=== PATIENT | male | born 1955 | race Hispanic/Latino ===

== ENCOUNTER 2017-06-10 21:05 | Inpatient (IN) | payer MEDICAID, OTHER ==
[~2017-06-10] VITALS: Ht 170.2 cm; Wt 68.0 kg
[2017-06-10 21:45] LABS: ABG BASE EXCESS 2.4 mmol/L (-2.0-3.0); ABG HCO3 23.9 mmol/L (21.0-28.0); ABG OXYGEN SATURATION 98.6 % (95.0-99.0); ABG PCO2 29 mmHg (35-48)
[2017-06-10 21:49] LABS: BASOPHILS % (AUTO) 0.5 % (0.0-5.0); HEMATOCRIT 44.8 % (42-54); LYMPHOCYTES % (AUTO) 13.4 % (21.0-51.0); MEAN CORPUSCULAR HEMOGLOBIN 29.5 pg (27.0-33.0); MEAN CORPUSCULAR HGB CONC 32.7 g/dL (32.0-36.0); MEAN CORPUSCULAR VOLUME 90.2 fL (79-99); NEUTROPHILS % (AUTO) 79.1 % (40.0-77.0); PLATELET COUNT (AUTO) 267 K/uL (130-400); RED BLOOD CELL COUNT(AUTO) 4.97 MIL/uL (4.50-6.20); RED CELL DISTRIBUTION WIDTH 14.7 % (11.0-15.5); WHITE BLOOD COUNT (AUTO) 17.3 K/uL (4.8-10.8)
[2017-06-10] MEDS ORDERED: SODIUM CHLORIDE 0.9% 500ML 500 ML IV ONE (21:52)
[2017-06-10 22:00] LABS: INR 1.16 (0.85-1.15); PARTIAL THROMBOPLASTIN TIME 29.2 SEC (26.3-35.5); PROTHROMBIN TIME 12.1 SEC (9.6-11.6)
[2017-06-10 22:10] LABS: ALANINE AMINOTRANSFERASE 25 U/L (12-78); ALBUMIN 2.6 g/dL (3.5-5.0); AMYLASE 26 U/L (25-115); ASPARTATE AMINOTRANSFERASE 314 U/L (10-37); BILIRUBIN,TOTAL 1.6 mg/dL (0.2-1.0); CARBON DIOXIDE 31 mmol/L (21-32); CREATINE KINASE MB < 0.5 ng/mL (0.5-3.6); CREATINE KINASE, TOTAL 33 U/L (21-232); GLOMERULAR FILTR. RATE CALC 80 mL/min (>60); GLUCOSE,RANDOM 89 mg/dL (70-105); LIPASE 65 U/L (114-286); MYOGLOBIN 27 ng/mL (10-92); POTASSIUM 5.2 mmol/L (3.5-5.1); SODIUM SERUM 129 mmol/L (136-145); TOTAL PROTEIN, SERUM 8.6 g/dL (6.0-8.3); UREA NITROGEN, BLOOD 11 mg/dL (7-18)
[2017-06-10 22:19] LABS: CHLORIDE 90 mmol/L (101-111)
[2017-06-10 23:10] LABS: BILIRUBIN,URINE Small (NEGATIVE); COLOR,URINE Dark Yellow (YELLOW); GLUCOSE, URINE (UA) Negative (NEGATIVE); KETONES,URINE 15 mg/dL (NEGATIVE); LEUKOCYTE ESTERASE ,URINE Negative (NEGATIVE); NITRATE,URINE Negative (NEGATIVE); OCCULT BLOOD,URINE Negative (NEGATIVE); PH,URINE 5.5 (5.0-8.0); PROTEIN,URINE POS 2+ (NEGATIVE)
[2017-06-10 23:14] LABS: APPEARANCE,URINE SLIGHTLY CLOUDY (CLEAR)
[2017-06-10] MEDS ORDERED: LEVOFLOXACIN 500 MG TABLET ONE (23:15)
[2017-06-10] MEDS ORDERED: CEFTRIAXONE SODIUM 1 GM ONE (23:16)
[2017-06-10 23:22] LABS: BACTERIA,URINE None Seen /HPF (None Seen); RBC,URINE None Seen /HPF (0-1); SQUAMOUS EPITHELIAL CELL,UR Few /LPF (0-2); WBC,URINE None Seen /HPF (0-1)
[2017-06-11] MEDS: SODIUM CHLORIDE 0.9% 1000ML 1,000 ML IV SCH ×4 (00:17→22:09)
[2017-06-11] MEDS ORDERED: ONDANSETRON HCL 4 MG/2 ML VIAL IV PRN (00:30)
[2017-06-11] MEDS: LEVOFLOXACIN 500 MG/D5W 100 ML 100 ML IV SCH ×2 (00:30→23:58)
[2017-06-11] MEDS ORDERED: HYDRALAZINE HCL 20 MG/ML VIAL IV PRN (00:30)
[2017-06-11] MEDS ORDERED: ACETAMINOPHEN 325 MG TAB PO PRN (00:30)
[2017-06-11] MEDS ORDERED: ZOLPIDEM TARTRATE 5 MG TAB PO PRN (00:30)
[2017-06-11] MEDS ORDERED: SODIUM CHLORIDE 0.9% 1000ML 1,000 ML IV ONE (01:35)
[2017-06-11 06:30] LABS: HEMATOCRIT 37.7 % (42-54); MEAN CORPUSCULAR HEMOGLOBIN 29.6 pg (27.0-33.0); MEAN CORPUSCULAR HGB CONC 33.4 g/dL (32.0-36.0); MEAN CORPUSCULAR VOLUME 88.8 fL (79-99); PLATELET COUNT (AUTO) 177 K/uL (130-400); RED BLOOD CELL COUNT(AUTO) 4.24 MIL/uL (4.50-6.20); RED CELL DISTRIBUTION WIDTH 14.2 % (11.0-15.5); WHITE BLOOD COUNT (AUTO) 14.4 K/uL (4.8-10.8)
[2017-06-11 06:46] LABS: ALBUMIN 2.1 g/dL (3.5-5.0); BILIRUBIN,TOTAL 1.1 mg/dL (0.2-1.0); CREATININE 0.8 mg/dL (0.5-1.5); POTASSIUM 4.3 mmol/L (3.5-5.1); TOTAL PROTEIN, SERUM 7.1 g/dL (6.0-8.3)
[2017-06-11] MEDS: MEGESTROL 400 MG/10 ML UDCUP PO SCH ×2 (08:00→17:19)
[2017-06-11] MEDS: ENOXAPARIN SODIUM 40 MG/0.4 ML SYRINGE SQ SCH (09:00)
[2017-06-11] MEDS: PANTOPRAZOLE SODIUM 40 MG TABLET.DR PO SCH (09:00)
[2017-06-11] MEDS ORDERED: ENOXAPARIN SODIUM 40 MG/0.4 ML SYRINGE SQ ONE (10:10)
[2017-06-11] MEDS ORDERED: MEGESTROL 400 MG/10 ML UDCUP PO SCH (10:45)
[2017-06-11] MEDS ORDERED: FLU VACC QS2017-18 36MOS UP/PF 60 MCG/0.5 ML ML IM ONE (18:30)
[2017-06-11 20:00] VITALS: BP 92/63
[2017-06-12] VITALS (7 sets, daily range): BP systolic 90–100; BP diastolic 40–64
[2017-06-12] MEDS ORDERED: TEMAZEPAM 15 MG CAPSULE PO PRN (00:30)
[2017-06-12 05:42] LABS: HEMATOCRIT 35.3 % (42-54); MEAN CORPUSCULAR HEMOGLOBIN 31.2 pg (27.0-33.0); MEAN CORPUSCULAR HGB CONC 34.7 g/dL (32.0-36.0); MEAN CORPUSCULAR VOLUME 89.9 fL (79-99); PLATELET COUNT (AUTO) 134 K/uL (130-400); RED BLOOD CELL COUNT(AUTO) 3.93 MIL/uL (4.50-6.20); RED CELL DISTRIBUTION WIDTH 14.5 % (11.0-15.5); WHITE BLOOD COUNT (AUTO) 10.1 K/uL (4.8-10.8)
[2017-06-12 05:52] LABS: BAND NEUTROPHILS % (MANUAL) 11 % (0-2); LYMPHOCYTES % (MANUAL) 7 % (22-44); MAN.DIFF COMMENT-IMPRESSION MANUAL DIFFERENTIAL; MONOCYTES % (MANUAL) 1 % (2-9); PLATELET MORPHOLOGY COMMENT DECREASED; SEGMENTED NEUTROPHILS % 81 % (40-70)
[2017-06-12] MEDS: SODIUM CHLORIDE 0.9% 1000ML 1,000 ML IV SCH ×2 (05:57→16:17)
[2017-06-12 06:00] LABS: CREATININE 0.7 mg/dL (0.5-1.5); POTASSIUM 3.7 mmol/L (3.5-5.1)
[2017-06-12] MEDS: PANTOPRAZOLE SODIUM 40 MG TABLET.DR PO SCH (08:27)
[2017-06-12] MEDS: ENOXAPARIN SODIUM 40 MG/0.4 ML SYRINGE SQ SCH (08:27)
[2017-06-12] MEDS: MEGESTROL 400 MG/10 ML UDCUP PO SCH ×2 (08:27→17:11)
[2017-06-13] MEDS: LEVOFLOXACIN 500 MG/D5W 100 ML 100 ML IV SCH ×2 (01:35→23:37)
[2017-06-13] MEDS: SODIUM CHLORIDE 0.9% 1000ML 1,000 ML IV SCH (01:36)
[2017-06-13 04:25] VITALS: BP 102/60
[2017-06-13 05:50] LABS: CREATININE 0.8 mg/dL (0.5-1.5); POTASSIUM 3.5 mmol/L (3.5-5.1)
[2017-06-13 07:00] VITALS: BP 106/66
[2017-06-13] MEDS: PANTOPRAZOLE SODIUM 40 MG TABLET.DR PO SCH (08:08)
[2017-06-13] MEDS: ENOXAPARIN SODIUM 40 MG/0.4 ML SYRINGE SQ SCH (08:08)
[2017-06-13] MEDS: MEGESTROL 400 MG/10 ML UDCUP PO SCH ×2 (08:08→16:57)
[2017-06-13 11:00] VITALS: BP 99/64
[2017-06-13 16:00] VITALS: BP 94/58
[2017-06-13] MEDS: LACTULOSE 20 GM/30 ML UDCUP PO PRN ×2 (16:57→22:38)
[2017-06-13] MEDS: IPRATROPIUM/ALBUTEROL SULFATE 3 ML SOLUTION IH SCH (19:13)
[2017-06-13 20:14] VITALS: BP 106/73
[2017-06-13 22:54] VITALS: BP 107/74
[2017-06-13] MEDS: MORPHINE SULFATE 2 MG/ML 1ML SYG IVP PRN (23:37)
[2017-06-14] VITALS (9 sets, daily range): BP systolic 91–110; BP diastolic 61–74
[2017-06-14] MEDS: IPRATROPIUM/ALBUTEROL SULFATE 3 ML SOLUTION IH SCH ×4 (00:23→18:24)
[2017-06-14] MEDS: MIDODRINE HCL 5 MG TABLET PO SCH (01:00)
[2017-06-14] MEDS: FUROSEMIDE 10 MG/ML 2ML VIAL IV SCH (01:00)
[2017-06-14] MEDS ORDERED: FUROSEMIDE 10 MG/ML 2ML VIAL ONE (01:32)
[2017-06-14] MEDS ORDERED: MIDODRINE HCL 5 MG TABLET ONE (01:32)
[2017-06-14 06:14] LABS: BASOPHILS % (AUTO) 0.4 % (0.0-5.0); EOSINOPHILS % (AUTO) 0.1 % (0.0-8.0); HEMATOCRIT 39.8 % (42-54); LYMPHOCYTES % (AUTO) 8.9 % (21.0-51.0); MEAN CORPUSCULAR HEMOGLOBIN 29.8 pg (27.0-33.0); MEAN CORPUSCULAR HGB CONC 33.1 g/dL (32.0-36.0); MEAN CORPUSCULAR VOLUME 90.1 fL (79-99); MONOCYTES % (AUTO) 10.3 % (3.0-13.0); NEUTROPHILS % (AUTO) 80.3 % (40.0-77.0); PLATELET COUNT (AUTO) 137 K/uL (130-400); RED BLOOD CELL COUNT(AUTO) 4.42 MIL/uL (4.50-6.20); RED CELL DISTRIBUTION WIDTH 14.7 % (11.0-15.5); WHITE BLOOD COUNT (AUTO) 15.2 K/uL (4.8-10.8)
[2017-06-14 06:22] LABS: POTASSIUM 4.8 mmol/L (3.5-5.1)
[2017-06-14] MEDS: MEGESTROL 400 MG/10 ML UDCUP PO SCH ×2 (08:00→18:19)
[2017-06-14] MEDS: PANTOPRAZOLE SODIUM 40 MG TABLET.DR PO SCH (09:00)
[2017-06-14] MEDS: ENOXAPARIN SODIUM 40 MG/0.4 ML SYRINGE SQ SCH (09:18)
[2017-06-14] MEDS: ZOSYN 3.375GM+NS 50ML 50 ML IV SCH ×2 (11:15→20:07)
[2017-06-14] MEDS ORDERED: IOPAMIDOL-370 75 ML VIAL IV ONE (12:15)
[2017-06-14] MEDS ORDERED: LIDOCAINE HCL-MPF 1% 2ML VIAL IVP PRN (19:45)
[2017-06-14] MEDS ORDERED: POTASSIUM CHLORIDE 20MEQ/100ML 100 ML IV PRN (19:45)
[2017-06-14] MEDS ORDERED: POTASSIUM CHLORIDE 20 MEQ ERTAB PO PRN (19:45)
[2017-06-14] MEDS ORDERED: POTASSIUM CHLORIDE 10% ELIXIR 20 MEQ/15 ML UDCUP PO PRN (19:45)
[2017-06-15] MEDS: IPRATROPIUM/ALBUTEROL SULFATE 3 ML SOLUTION IH SCH ×4 (00:27→18:13)
[2017-06-15] MEDS: LEVOFLOXACIN 500 MG/D5W 100 ML 100 ML IV SCH ×2 (00:52→23:47)
[2017-06-15] MEDS: MIDODRINE HCL 5 MG TABLET PO SCH (01:00)
[2017-06-15] MEDS: FUROSEMIDE 10 MG/ML 2ML VIAL IV SCH (01:00)
[2017-06-15 03:00] VITALS: BP 100/62
[2017-06-15] MEDS: ZOSYN 3.375GM+NS 50ML 50 ML IV SCH ×3 (03:24→20:14)
[2017-06-15 04:38] LABS: BASOPHILS % (AUTO) 0.4 % (0.0-5.0); EOSINOPHILS % (AUTO) 0.3 % (0.0-8.0); HEMATOCRIT 37.8 % (42-54); LYMPHOCYTES % (AUTO) 9.1 % (21.0-51.0); MEAN CORPUSCULAR HEMOGLOBIN 29.8 pg (27.0-33.0); MEAN CORPUSCULAR HGB CONC 33.3 g/dL (32.0-36.0); MEAN CORPUSCULAR VOLUME 89.5 fL (79-99); MONOCYTES % (AUTO) 8.5 % (3.0-13.0); NEUTROPHILS % (AUTO) 81.7 % (40.0-77.0); PLATELET COUNT (AUTO) 123 K/uL (130-400); RED BLOOD CELL COUNT(AUTO) 4.23 MIL/uL (4.50-6.20); WHITE BLOOD COUNT (AUTO) 12.7 K/uL (4.8-10.8)
[2017-06-15 05:05] LABS: ALBUMIN 1.7 g/dL (3.5-5.0); BILIRUBIN,DIRECT 0.3 mg/dL (0.0-0.3); BILIRUBIN,TOTAL 0.7 mg/dL (0.2-1.0); CREATININE 0.8 mg/dL (0.5-1.5); POTASSIUM 4.3 mmol/L (3.5-5.1); TOTAL PROTEIN, SERUM 6.9 g/dL (6.0-8.3)
[2017-06-15 07:20] VITALS: BP 96/60
[2017-06-15] MEDS: MEGESTROL 400 MG/10 ML UDCUP PO SCH ×2 (07:54→16:07)
[2017-06-15] MEDS: MORPHINE SULFATE 2 MG/ML 1ML SYG IVP PRN ×2 (07:54→18:20)
[2017-06-15] MEDS: PANTOPRAZOLE SODIUM 40 MG TABLET.DR PO SCH (07:54)
[2017-06-15] MEDS: ENOXAPARIN SODIUM 40 MG/0.4 ML SYRINGE SQ SCH (07:56)
[2017-06-15 11:15] VITALS: BP 98/61
[2017-06-15 15:00] VITALS: BP 101/61
[2017-06-15 19:58] VITALS: BP 101/66
[2017-06-15 23:55] VITALS: BP 105/67
[2017-06-16] MEDS: IPRATROPIUM/ALBUTEROL SULFATE 3 ML SOLUTION IH SCH ×4 (00:09→18:44)
[2017-06-16] MEDS: MIDODRINE HCL 5 MG TABLET PO SCH (01:00)
[2017-06-16] MEDS: FUROSEMIDE 10 MG/ML 2ML VIAL IV SCH (01:00)
[2017-06-16 03:44] VITALS: BP 98/61
[2017-06-16] MEDS: ZOSYN 3.375GM+NS 50ML 50 ML IV SCH ×3 (04:42→20:50)
[2017-06-16 05:02] LABS: BASOPHILS % (AUTO) 0.3 % (0.0-5.0); EOSINOPHILS % (AUTO) 0.3 % (0.0-8.0); HEMATOCRIT 40.1 % (42-54); LYMPHOCYTES % (AUTO) 10.3 % (21.0-51.0); MEAN CORPUSCULAR HGB CONC 33.4 g/dL (32.0-36.0); MEAN CORPUSCULAR VOLUME 89.8 fL (79-99); NEUTROPHILS % (AUTO) 79.1 % (40.0-77.0); PLATELET COUNT (AUTO) 128 K/uL (130-400); RED BLOOD CELL COUNT(AUTO) 4.47 MIL/uL (4.50-6.20); RED CELL DISTRIBUTION WIDTH 14.9 % (11.0-15.5); WHITE BLOOD COUNT (AUTO) 12.5 K/uL (4.8-10.8)
[2017-06-16 05:06] LABS: CREATININE 0.8 mg/dL (0.5-1.5); MAGNESIUM 1.6 mg/dL (1.80-2.40); POTASSIUM 4.7 mmol/L (3.5-5.1)
[2017-06-16 07:30] VITALS: BP 90/61
[2017-06-16] MEDS: MEGESTROL 400 MG/10 ML UDCUP PO SCH ×2 (08:46→17:00)
[2017-06-16] MEDS: PANTOPRAZOLE SODIUM 40 MG TABLET.DR PO SCH (08:47)
[2017-06-16] MEDS: ENOXAPARIN SODIUM 40 MG/0.4 ML SYRINGE SQ SCH (08:48)
[2017-06-16 11:03] VITALS: BP 95/62
[2017-06-16 13:26] LABS: ABG BASE EXCESS -1.5 mmol/L (-2.0-3.0); ABG HCO3 21.8 mmol/L (21.0-28.0); ABG OXYGEN SATURATION 94.9 % (95.0-99.0); ABG PCO2 33 mmHg (35-48)
[2017-06-16 15:00] VITALS: BP 104/68
[2017-06-16] MEDS ORDERED: MAGNESIUM SULFATE 1 GM in SODIUM CHLORIDE 0.9% 50 ML IV SCH (17:45)
[2017-06-16 20:25] VITALS: BP 99/65
[2017-06-16 23:56] VITALS: BP 103/65
[2017-06-17] MEDS: LEVOFLOXACIN 500 MG/D5W 100 ML 100 ML IV SCH (00:29)
[2017-06-17] MEDS: FUROSEMIDE 10 MG/ML 2ML VIAL IV SCH (01:00)
[2017-06-17] MEDS: MIDODRINE HCL 5 MG TABLET PO SCH (01:00)
[2017-06-17] MEDS: MORPHINE SULFATE 2 MG/ML 1ML SYG IVP PRN ×2 (01:58→16:39)
[2017-06-17 04:16] LABS: BASOPHILS % (AUTO) 0.2 % (0.0-5.0); EOSINOPHILS % (AUTO) 0.3 % (0.0-8.0); HEMATOCRIT 38.4 % (42-54); LYMPHOCYTES % (AUTO) 10.5 % (21.0-51.0); MEAN CORPUSCULAR HEMOGLOBIN 29.8 pg (27.0-33.0); MEAN CORPUSCULAR HGB CONC 33.2 g/dL (32.0-36.0); MEAN CORPUSCULAR VOLUME 89.6 fL (79-99); MONOCYTES % (AUTO) 9.5 % (3.0-13.0); NEUTROPHILS % (AUTO) 79.5 % (40.0-77.0); PLATELET COUNT (AUTO) 130 K/uL (130-400); RED BLOOD CELL COUNT(AUTO) 4.29 MIL/uL (4.50-6.20); RED CELL DISTRIBUTION WIDTH 14.4 % (11.0-15.5); WHITE BLOOD COUNT (AUTO) 13.2 K/uL (4.8-10.8)
[2017-06-17 04:18] VITALS: BP 102/65
[2017-06-17 04:29] LABS: CREATININE 0.8 mg/dL (0.5-1.5); MAGNESIUM 1.5 mg/dL (1.80-2.40); POTASSIUM 4.3 mmol/L (3.5-5.1)
[2017-06-17] MEDS: ZOSYN 3.375GM+NS 50ML 50 ML IV SCH ×3 (04:57→20:07)
[2017-06-17] MEDS: IPRATROPIUM/ALBUTEROL SULFATE 3 ML SOLUTION IH SCH ×5 (06:44→23:21)
[2017-06-17] MEDS: MEGESTROL 400 MG/10 ML UDCUP PO SCH ×2 (07:50→16:38)
[2017-06-17 08:23] VITALS: BP 95/61
[2017-06-17] MEDS: PANTOPRAZOLE SODIUM 40 MG TABLET.DR PO SCH (09:10)
[2017-06-17] MEDS: ENOXAPARIN SODIUM 40 MG/0.4 ML SYRINGE SQ SCH (09:11)
[2017-06-17 11:28] VITALS: BP 105/68
[2017-06-17 17:01] VITALS: BP 109/75
[2017-06-17] MEDS ORDERED: MAGNESIUM 2GM PREMIX 50ML 50 ML IV SCH (18:30)
[2017-06-17 20:00] VITALS: BP 106/72
[2017-06-17 23:40] VITALS: BP 108/72
[2017-06-18] MEDS: LEVOFLOXACIN 500 MG/D5W 100 ML 100 ML IV SCH (00:43)
[2017-06-18] MEDS: ZOSYN 3.375GM+NS 50ML 50 ML IV SCH ×3 (03:08→18:11)
[2017-06-18 03:45] VITALS: BP 100/63
[2017-06-18] MEDS: MORPHINE SULFATE 2 MG/ML 1ML SYG IVP PRN ×2 (04:13→14:40)
[2017-06-18 04:23] LABS: CREATININE 0.8 mg/dL (0.5-1.5); MAGNESIUM 1.8 mg/dL (1.80-2.40); POTASSIUM 4.7 mmol/L (3.5-5.1)
[2017-06-18 05:31] LABS: BASOPHILS % (AUTO) 0.3 % (0.0-5.0); EOSINOPHILS % (AUTO) 0.3 % (0.0-8.0); HEMATOCRIT 39.9 % (42-54); LYMPHOCYTES % (AUTO) 10.4 % (21.0-51.0); MEAN CORPUSCULAR HEMOGLOBIN 29.2 pg (27.0-33.0); MEAN CORPUSCULAR VOLUME 88.5 fL (79-99); MONOCYTES % (AUTO) 8.1 % (3.0-13.0); NEUTROPHILS % (AUTO) 80.9 % (40.0-77.0); PLATELET COUNT (AUTO) 123 K/uL (130-400); RED BLOOD CELL COUNT(AUTO) 4.51 MIL/uL (4.50-6.20); RED CELL DISTRIBUTION WIDTH 14.5 % (11.0-15.5); WHITE BLOOD COUNT (AUTO) 13.6 K/uL (4.8-10.8)
[2017-06-18] MEDS: IPRATROPIUM/ALBUTEROL SULFATE 3 ML SOLUTION IH SCH ×3 (06:01→18:46)
[2017-06-18 07:57] VITALS: BP 100/70
[2017-06-18] MEDS: PANTOPRAZOLE SODIUM 40 MG TABLET.DR PO SCH (08:30)
[2017-06-18] MEDS: MEGESTROL 400 MG/10 ML UDCUP PO SCH ×2 (08:30→17:41)
[2017-06-18] MEDS: ENOXAPARIN SODIUM 40 MG/0.4 ML SYRINGE SQ SCH (08:31)
[2017-06-18 11:24] VITALS: BP 110/68
[2017-06-18] MEDS ORDERED: PAMIDRONATE DISODIUM 90MG VIAL 90 MG in SODIUM CHLORIDE 0.9% 1000ML 1,000 ML IV SCH (12:15)
[2017-06-18] MEDS: SODIUM CHLORIDE 0.9% 1000ML 1,000 ML IV SCH ×2 (13:02→20:26)
[2017-06-18] MEDS: FUROSEMIDE 10 MG/ML 4ML VIAL IV SCH ×2 (13:02→20:28)
[2017-06-18 16:03] VITALS: BP 110/74
[2017-06-18 19:45] VITALS: BP 102/66
[2017-06-18 23:30] VITALS: BP 98/64
[2017-06-19] MEDS: IPRATROPIUM/ALBUTEROL SULFATE 3 ML SOLUTION IH SCH ×4 (00:02→18:46)
[2017-06-19] MEDS: LEVOFLOXACIN 500 MG/D5W 100 ML 100 ML IV SCH (00:15)
[2017-06-19] MEDS: ZOSYN 3.375GM+NS 50ML 50 ML IV SCH ×3 (02:54→18:10)
[2017-06-19 03:40] VITALS: BP 100/64
[2017-06-19] MEDS: SODIUM CHLORIDE 0.9% 1000ML 1,000 ML IV SCH ×3 (04:15→20:44)
[2017-06-19] MEDS: FUROSEMIDE 10 MG/ML 4ML VIAL IV SCH ×3 (05:43→20:44)
[2017-06-19 06:13] LABS: CREATININE 0.7 mg/dL (0.5-1.5)
[2017-06-19] MEDS: MORPHINE SULFATE 2 MG/ML 1ML SYG IVP PRN ×2 (07:24→17:15)
[2017-06-19] MEDS: MEGESTROL 400 MG/10 ML UDCUP PO SCH ×2 (07:58→16:45)
[2017-06-19] MEDS: PANTOPRAZOLE SODIUM 40 MG TABLET.DR PO SCH (07:58)
[2017-06-19] MEDS: ENOXAPARIN SODIUM 40 MG/0.4 ML SYRINGE SQ SCH (07:59)
[2017-06-19 09:14] VITALS: BP 156/80
[2017-06-19 09:16] VITALS: BP 89/58
[2017-06-19 11:43] VITALS: BP 95/65
[2017-06-19 16:19] VITALS: BP 110/65
[2017-06-19 20:00] VITALS: BP 101/63
[2017-06-20] VITALS: BP 93/61
[2017-06-20] MEDS: IPRATROPIUM/ALBUTEROL SULFATE 3 ML SOLUTION IH SCH ×4 (00:20→19:04)
[2017-06-20] MEDS: LEVOFLOXACIN 500 MG/D5W 100 ML 100 ML IV SCH (00:52)
[2017-06-20] MEDS: LORAZEPAM 2 MG/ML 1 ML VIAL IVP PRN ×2 (02:37→20:13)
[2017-06-20] MEDS: ZOSYN 3.375GM+NS 50ML 50 ML IV SCH (03:11)
[2017-06-20 04:00] VITALS: BP_SYST 113; BP_DIAS 71; BP_DIAS 77
[2017-06-20] MEDS: SODIUM CHLORIDE 0.9% 1000ML 1,000 ML IV SCH (04:15)
[2017-06-20] MEDS: FUROSEMIDE 10 MG/ML 4ML VIAL IV SCH (05:22)
[2017-06-20] MEDS: MORPHINE SULFATE 2 MG/ML 1ML SYG IVP PRN ×2 (06:36→16:22)
[2017-06-20 08:00] VITALS: BP 128/72
[2017-06-20] MEDS: PANTOPRAZOLE SODIUM 40 MG TABLET.DR PO SCH (08:05)
[2017-06-20] MEDS: MEGESTROL 400 MG/10 ML UDCUP PO SCH ×2 (08:05→17:00)
[2017-06-20] MEDS: ENOXAPARIN SODIUM 40 MG/0.4 ML SYRINGE SQ SCH (08:06)
[2017-06-20 11:38] VITALS: BP 99/68
[2017-06-20 16:00] VITALS: BP 100/64
[2017-06-20 19:00] VITALS: BP 95/62
[2017-06-21] VITALS: BP 98/69
[2017-06-21] MEDS: IPRATROPIUM/ALBUTEROL SULFATE 3 ML SOLUTION IH SCH ×3 (00:16→11:53)
[2017-06-21] MEDS ORDERED: MORPHINE SULFATE 2 MG/ML 1ML SYG IVP PRN (01:30)
[2017-06-21 04:00] VITALS: BP 102/68
[2017-06-21 07:00] VITALS: BP 98/62
[2017-06-21] MEDS: PANTOPRAZOLE SODIUM 40 MG TABLET.DR PO SCH (08:54)
[2017-06-21] MEDS: MEGESTROL 400 MG/10 ML UDCUP PO SCH ×2 (08:54→17:27)
[2017-06-21 12:12] VITALS: BP 90/62
== END 2017-06-21 18:45 | disposition hospice, home (50) | DRG 871 ==
LOC: EDH 21:05 → EDHIP 21:06 → 3CH 06-11 15:26 → 3DH 06-19 23:18
PROVIDERS: ADMIT Family Medicine; ATTEND Family Medicine
PROC: 3E0234Z Introduction of Serum, Toxoid and Vaccine into Muscle, Percutaneous Approach (ICD-10-PCS; principal; 2017-06-12)
DX: A41.9 Sepsis, unspecified organism (principal); E43 Unspecified severe protein-calorie malnutrition; C22.9 Malignant neoplasm of liver, not specified as primary or secondary; J18.9 Pneumonia, unspecified organism; J84.10 Pulmonary fibrosis, unspecified; K74.60 Unspecified cirrhosis of liver; E87.1 Hypo-osmolality and hyponatremia; J44.0 Chronic obstructive pulmonary disease with (acute) lower respiratory infection; Z68.23 Body mass index [BMI] 23.0-23.9, adult; I10 Essential (primary) hypertension; E83.52 Hypercalcemia; R62.7 Adult failure to thrive; Z51.5 Encounter for palliative care; Z66 Do not resuscitate; Z80.42 Family history of malignant neoplasm of prostate; Z85.05 Personal history of malignant neoplasm of liver; F41.9 Anxiety disorder, unspecified; Z23 Encounter for immunization
CPT/HCPCS: 36415; 36600; 71010; 71260; 76700; 80048; 80053; 80076; 81001; 82140; 82150; 82550; 82553; 82803; 82948; 83690; 83735; 83874; 83880; 84484; 85025; 85027; 85610; 85730; 86900; 86901; 87040; 87633; 87804; 93005; 94640; 94664; 97039; G0008; J0696; J1650; J1940; J1956; J2060; J2430; J2543; J3475; J7030; J7040; Q9967

== ENCOUNTER 2017-06-29 18:35 | Inpatient (IN) | payer MEDICAID, OTHER ==
[2017-06-29 19:53] LABS: BASOPHILS % (AUTO) 0.1 % (0.0-5.0); HEMATOCRIT 40.3 % (42-54); LYMPHOCYTES % (AUTO) 6.6 % (21.0-51.0); MEAN CORPUSCULAR HEMOGLOBIN 29.5 pg (27.0-33.0); MEAN CORPUSCULAR HGB CONC 33.2 g/dL (32.0-36.0); MONOCYTES % (AUTO) 6.1 % (3.0-13.0); NEUTROPHILS % (AUTO) 87.2 % (40.0-77.0); PLATELET COUNT (AUTO) 203 K/uL (130-400); RED BLOOD CELL COUNT(AUTO) 4.52 MIL/uL (4.50-6.20); RED CELL DISTRIBUTION WIDTH 15.6 % (11.0-15.5); WHITE BLOOD COUNT (AUTO) 22.8 K/uL (4.8-10.8)
[2017-06-29 20:06] LABS: CREATININE 2.7 mg/dL (0.5-1.5); POTASSIUM 4.7 mmol/L (3.5-5.1)
[2017-06-29 20:11] LABS: ALBUMIN 2.2 g/dL (3.5-5.0); BILIRUBIN,TOTAL 2.1 mg/dL (0.2-1.0); TOTAL PROTEIN, SERUM 8.5 g/dL (6.0-8.3)
[2017-06-29] MEDS ORDERED: FAMOTIDINE/PF 20 MG/2 ML VIAL IV ONE (20:54)
[2017-06-29] MEDS ORDERED: M.V.I. IV [ADULT] 10 ML, THIAMINE HCL 100 MG, FOLIC ACID 1 MG in SODIUM CHLORIDE 0.9% 1... IV SCH (21:45)
[2017-06-30 02:08] LABS: HEMATOCRIT 30.6 % (42-54)
[2017-06-30] MEDS ORDERED: NOREPINEPHRINE BITARTRATE 1 MG/1 ML ML IV ONE (02:29)
[2017-06-30] MEDS ORDERED: ZOSYN 3.375GM+NS 50ML 50 ML IV ONE ×2 (02:42→13:10)
[2017-06-30] MEDS ORDERED: LEVOFLOXACIN 750 MG/D5W 150 ML 150 ML ONE (02:43)
[2017-06-30 09:14] LABS: HEMATOCRIT 37.5 % (42-54)
[2017-06-30 12:55] LABS: HEMATOCRIT 36.6 % (42-54)
[2017-06-30] MEDS ORDERED: MORPHINE SULFATE 2 MG/ML 1ML SYG IV PRN (15:00)
[2017-06-30] MEDS ORDERED: MORPHINE SULFATE 4 MG/1ML SYG ONE (15:16)
[2017-07-01] MEDS: MORPHINE SULFATE 4 MG/1ML SYG IV PRN (14:16)
[2017-07-01] MEDS: LORAZEPAM 2 MG/ML 1 ML VIAL IM PRN (14:17)
[2017-07-01 20:00] VITALS: BP 78/49
[2017-07-02] MEDS: MORPHINE SULFATE 4 MG/1ML SYG IV PRN ×2 (00:41→18:32)
[2017-07-02 07:00] VITALS: BP 98/50
[2017-07-02] MEDS: LORAZEPAM 2 MG/ML 1 ML VIAL IM PRN (10:29)
== END 2017-07-02 22:10 | disposition expired | DRG 871 ==
LOC: EDH 18:35 → EDHIP 18:36 → OBSVTOIN 18:36 → INTOOBSV 18:36 → 3DH 07-01 12:16
PROVIDERS: ADMIT Internal Medicine; ATTEND Internal Medicine
DX: A41.9 Sepsis, unspecified organism (principal); G93.41 Metabolic encephalopathy; E87.2 Acidosis; N17.9 Acute kidney failure, unspecified; J84.10 Pulmonary fibrosis, unspecified; R18.8 Other ascites; K92.2 Gastrointestinal hemorrhage, unspecified; K74.60 Unspecified cirrhosis of liver; I12.9 Hypertensive chronic kidney disease with stage 1 through stage 4 chronic kidney disease, or unspecified chronic kidney disease; E86.1 Hypovolemia; F10.20 Alcohol dependence, uncomplicated; F41.9 Anxiety disorder, unspecified; J44.9 Chronic obstructive pulmonary disease, unspecified; N18.9 Chronic kidney disease, unspecified; Z51.5 Encounter for palliative care; Z66 Do not resuscitate; Z85.05 Personal history of malignant neoplasm of liver
CPT/HCPCS: 36415; 73502; 74021; 74176; 80053; 82140; 82270; 82948; 85025; 86850; 86900; 86901; 99291; J1956; J2060; J2270; J2543; J3411; J3490; J7030